=== PATIENT | male | born 1955 | race African-American/Black ===

== ENCOUNTER 2018-08-28 09:23 | Emergency (ER) | payer OTHER ==
[~2018-08-28] VITALS: Ht 177.8 cm; Wt 65.0 kg
[2018-08-28 09:25] VITALS: BP 127/83
== END 2018-08-28 15:20 | disposition left against medical advice (07) ==
LOC: ER 09:23
DX: R10.9 Unspecified abdominal pain (principal); Z53.21 Procedure and treatment not carried out due to patient leaving prior to being seen by health care provider